=== PATIENT | female | born 1945 | race Caucasian/White ===

== ENCOUNTER 2020-04-14 16:58 | Inpatient (IN) | payer MEDICARE, SELFPAY ==
[2020-04-15 04:38] VITALS: BMI 25.7
--- NOTE | 2020-04-15 04:40 | ECG_ITS ---
Test Reason : VOMITTING Blood Pressure : / mmHG Vent. Rate : 138 BPM Atrial Rate : 120 BPM P-R Int : 000 ms QRS Dur : 116 ms QT Int : 340 ms P-R-T Axes : 000 -48 121 degrees QTc Int : 515 ms Atrial flutter with variable A-V block Left axis deviation T-wave inversion in Lateral leads Abnormal ECG When compared with ECG of 09-FEB-2020 16:55, Heart rate has increased Referred By: Dorina Diamond Electronically Signed By:ARLETTE ANTOINE
[2020-04-16] VITALS (9 sets, daily range): BP systolic 117–152; BP diastolic 57–98; PULSE 16–99; RESP 16–20; TEMP 36.3–37; O2SAT 98–100
[2020-04-16] MEDS: Heparin Sodium,Porcine 5,000 UNIT/ML VIAL 5000 UNIT SUBCUT ×2 (04:51→18:46)
[2020-04-16] MEDS: 0.9 % Sodium Chloride Flush 3 ML SYRINGE 2 ML IVFLUSH ×3 (08:14→23:56)
--- NOTE | 2020-04-16 10:27 | W.PM.DNNEP ---
Subjective Subjective This patient was seen during dialysis. Physical Exam Vital Signs and I&O and Narrative: Vital Signs and I&O: Vital Signs Temp 97.8 F 04/16/20 08:00 Pulse 75 04/16/20 04:00 Resp 16 04/16/20 08:00 BP 123/78 04/16/20 08:00 Pulse Ox 100 04/16/20 04:00 Intake & Output 04/15/20 04/16/20 04/16/20 18:59 06:59 18:59 Other: Number of Incont inent Voids 1 Number of Bowel Movements 1 Body Mass Index 25.7 Const: General: cooperative Orientation/consciousness: oriented to person Eyes: General: appearance normal, both eyes and all related structures Resp: Effort & Inspection: normal respiratory effort Cardio: Jugular venous distension: no JVD Rate: regular rate Heart sounds: no murmurs Skin: General skin exam: no rashes or lesions noted Neuro: General: oriented to person Motor exam (neuro): No Asterixis during motor activity present Assessment & Plan Assessment and plan (1) ESRD (end stage renal disease): Problem details: Non adherent to therapy Missed almost 4 weeks of out pt HD Status: Chronic Assessment and Plan: Uremia is resolving HD again tomorrow Keep on low K diet Can DC post dialysis tomorrow Will arrange for out patient HD Time Spent With Patient Time: Total time spent is greater than 50% in coordination of care (as documented) at patient's floor/unit and/or counseling patient:
[2020-04-16] MEDS: ondansetron HCL 4 MG/2 ML VIAL IVPUSH ×2 (10:30)
--- NOTE | 2020-04-16 12:21 | MHC.CM.PN ---
Per ROUNDS discussion, CM phoned Patient's Brother in [place]. Patient's Brother indicates that he is Patient's HCP, but he does not have a copy of the HCP. The only copy of the HCP is at Patient's home and Brother lives in [place]. Also, Patient has no PCP. CM spoke with RN, who indicates that Patient is alert and oriented. CM was attempting to complete a new HCP, but Patient was actively vomiting. CM will continue to attempt to secure a HCP with Patient.
[2020-04-16] MEDS: dilTIAZem HCL 60 MG TABLET PO ×3 (13:58→20:57)
[2020-04-16 15:04] LABS: Anion Gap 18 (12-20); Blood Urea Nitrogen 23 mg/dL (9-16); Calcium 7.7 mg/dL (8.4-10.2); Carbon Dioxide 21 mmol/L (22-29); Chloride 98 mmol/L (96-108); Creatinine Clr Calc Pharmacy 9.4; Estimated Glomerular Filt Rate 9; Glucose Random 101 mg/dL (60-115); Potassium 3.4 mmol/l (3.3-5.1); Sodium 134 mmol/L (135-145)
--- NOTE | 2020-04-16 16:45 | HO.PM.IMPN ---
Subjective Subjective Date of Service: 04/16/20 Interval History: patient brought in due to failure to thrive patient currently receiving hemodialysis complaining of nausea and vomiting denies abdominal pain no other acute issues overnight, no confusion, no tremor. Review of Systems Review of systems General no fever, no chills CVS no chest pain, no palpitation GI complaining of nausea, no abdominal pain, no diarrhea Physical Exam Vital Signs and I&O and Narrative: Vital Signs and I&O: Vital Signs Temp 97.5 F 04/16/20 16:00 Pulse 72 04/16/20 16:00 Resp 18 04/16/20 16:00 BP 139/57 L 04/16/20 16:00 Pulse Ox 99 04/16/20 16:00 Intake & Output 04/15/20 04/16/20 04/16/20 18:59 06:59 18:59 Intake Total 120 / 120 Balance 120 / 120 Intake: Intake, Oral [place] unt 120 / 120 Other: Meal Refused No Breakfast % Eate n 50% Number of Incont inent Voids 1 Number of Bowel Movements 1 Body Mass Index 25.7 On examination GENERAL: awake and alert,no acute distress. NECK: Supple. No jvd CARDIOVASCULAR: Irregularly regular. LUNGS: Clear, no respiratory distress. ABDOMEN: Soft. Nontender. Bowel sounds audible EXTREMITIES: No edema. NEUROLOGICAL: no focal deficit ,alert and oriented , no tremor. Objective Data Current Medications Generic Name Dose Route Start Last Admin Trade Name Freq PRN Reason Stop Dose Admin Diltiazem HCl 60 mg 04/16/20 13:00 04/16/20 13:58 Diltiazem Hcl 60 Mg Tablet PO 60 mg QID ANDIE Administration Protocol Heparin Sodium (Porcine) 5,000 unit 04/16/20 05:00 04/16/20 04:51 Heparin Sodium,Porcine 5,000 Unit/Ml Vial SUBCUT 5,000 unit Q12H ANDIE Administration Levalbuterol HCl 1.25 mg 04/16/20 12:01 Levalbuterol Hcl 1.25 Mg/3 Ml Vial.Neb INHALE Q3H PRN Shortness of Breath Ondansetron HCl 4 mg 04/16/20 00:00 04/16/20 10:30 Ondansetron Hcl 4 Mg/2 Ml Vial IVPUSH 4 mg Q8H PRN Administration Nausea and Vomiting Sodium Chloride 2 ml 04/16/20 00:00 04/16/20 08:14 0.9 % Sodium Chloride Flush 3 Ml Syringe IVFLUSH 2 ml QSHIFT ANDIE Administration Labs CBC & Chem 7: 04/14/20 13:47 04/16/20 14:05 Labs: Laboratory Results - last 24 hr 04/14/20 04/14/20 04/14/20 13:10 13:47 13:47 MCV MCH MCHC RDW Coeff of Cuong Plt Count MPV Immature Gran % (Auto) Neut % (Auto) Lymph % (Auto) Dickenson % (Auto) Eos % (Auto) Baso % (Auto) Abs Immat Gran (auto) Absolute Lymphs (auto) Absolute Monos (auto) Absolute Eos (auto) Absolute Basos (auto) Absolute Nucleated RBC Nucleated RBC % (auto) Absolute Neutrophils PT INR O2 Saturation ABG pH ABG pCO2 (Temp Corrct ABG pO2 (Temp Correct ABG HCO3 ABG Base Excess FiO2 Bicarbonate 8 L* D Anion Gap 32 H Estimated Creat Clear 1.9 Estim Creat Clear Calc Estimated GFR Est GFR (Non-Af Amer) 1 POC Glucose 92 Random Glucose 111 Fasting Glucose Lactic Acid Calcium 6.5 L D Magnesium 2.7 H Total Bilirubin 0.7 Direct Bilirubin 0.4 AST 11 ALT 10 Alkaline Phosphatase 85 Ammonia 54 Troponin I High Sens C-Reactive Protein 3.67 H Total Protein 7.6 Albumin 4.0 Lipase 94 H TSH 3rd Generation 2.74 Salicylates < 5.0 L Acetaminophen < 1 Ethyl Alcohol Acetone, Qual SMALL H 04/14/20 04/14/20 04/14/20 13:47 13:47 13:47 MCV MCH MCHC RDW Coeff of Cuong Plt Count MPV Immature Gran % (Auto) Neut % (Auto) Lymph % (Auto) Dickenson % (Auto) Eos % (Auto) Baso % (Auto) Abs Immat Gran (auto) Absolute Lymphs (auto) Absolute Monos (auto) Absolute Eos (auto) Absolute Basos (auto) Absolute Nucleated RBC Nucleated RBC % (auto) Absolute Neutrophils PT INR O2 Saturation ABG pH ABG pCO2 (Temp Corrct ABG pO2 (Temp Correct ABG HCO3 ABG Base Excess FiO2 Bicarbonate Anion Gap Estimated Creat Clear Estim Creat Clear Calc Estimated GFR Est GFR (Non-Af Amer) POC Glucose Random Glucose Fasting Glucose Lactic Acid 1.3 Calcium Magnesium Total Bilirubin Direct Bilirubin AST ALT Alkaline Phosphatase Ammonia Troponin I High Sens 239.6 H C-Reactive Protein Total Protein Albumin Lipase TSH 3rd Generation Salicylates Acetaminophen Ethyl Alcohol < 10 Acetone, Qual 04/14/20 04/14/20 04/14/20 13:47 13:49 15:55 MCV 89.3 MCH 29.3 MCHC 32.8 RDW Coeff of Cuong 15.8 Plt Count 205 MPV 10.0 Immature Gran % (Auto) 0.9 H Neut % (Auto) 81.6 H Lymph % (Auto) 10.8 L Dickenson % (Auto) 5.0 Eos % (Auto) 1.2 Baso % (Auto) 0.5 Abs Immat Gran (auto) 0.06 H Absolute Lymphs (auto) 0.7 L Absolute Monos (auto) 0.3 Absolute Eos (auto) 0.1 Absolute Basos (auto) 0.0 Absolute Nucleated RBC 0.000 Nucleated RBC % (auto) 0.0 Absolute Neutrophils 5.4 PT 14.0 H INR 1.2 H O2 Saturation 96.2 ABG pH 7.23 L ABG pCO2 (Temp Corrct 20 L* ABG pO2 (Temp Correct 92 ABG HCO3 8 L ABG Base Excess -17.5 FiO2 RA Bicarbonate Anion Gap Estimated Creat Clear Estim Creat Clear Calc Estimated GFR Est GFR (Non-Af Amer) POC Glucose Random Glucose Fasting Glucose Lactic Acid Calcium Magnesium Total Bilirubin Direct Bilirubin AST ALT Alkaline Phosphatase Ammonia Troponin I High Sens C-Reactive Protein Total Protein Albumin Lipase TSH 3rd Generation Salicylates Acetaminophen Ethyl Alcohol Acetone, Qual 04/15/20 04/16/20 05:43 14:05 MCV MCH MCHC RDW Coeff of Cuong Plt Count MPV Immature Gran % (Auto) Neut % (Auto) Lymph % (Auto) Dickenson % (Auto) Eos % (Auto) Baso % (Auto) Abs Immat Gran (auto) Absolute Lymphs (auto) Absolute Monos (auto) Absolute Eos (auto) Absolute Basos (auto) Absolute Nucleated RBC Nucleated RBC % (auto) Absolute Neutrophils PT INR O2 Saturation ABG pH ABG pCO2 (Temp Corrct ABG pO2 (Temp Correct ABG HCO3 ABG Base Excess FiO2 Bicarbonate 9 L* Anion Gap 30 H 18 Estimated Creat Clear 2.0 Estim Creat Clear Calc 9.4 Estimated GFR 9 Est GFR (Non-Af Amer) 1 POC Glucose Random Glucose 101 Fasting Glucose 150 H D Lactic Acid Calcium 6.6 L 7.7 L Magnesium Total Bilirubin 0.6 Direct Bilirubin AST 9 ALT 9 Alkaline Phosphatase 73 Ammonia Troponin I High Sens C-Reactive Protein Total Protein 6.7 Albumin 3.6 Lipase TSH 3rd Generation Salicylates Acetaminophen Ethyl Alcohol Acetone, Qual
[2020-04-17] VITALS (9 sets, daily range): BP systolic 103–141; BP diastolic 54–85; PULSE 74–103; RESP 16–76; TEMP 36.1–36.8; O2SAT 95–99
[2020-04-17] MEDS: Heparin Sodium,Porcine 5,000 UNIT/ML VIAL 5000 UNIT SUBCUT ×2 (06:02→16:26)
[2020-04-17] MEDS: dilTIAZem HCL 60 MG TABLET PO (07:35)
[2020-04-17] MEDS: 0.9 % Sodium Chloride Flush 3 ML SYRINGE 2 ML IVFLUSH ×3 (07:36→23:42)
--- NOTE | 2020-04-17 10:44 | W.PM.DNNEP ---
Subjective Subjective This patient was seen during dialysis. Interval history: patient brought in due to failure to thrive patient currently receiving hemodialysis complaining of nausea and vomiting denies abdominal pain no other acute issues overnight, no confusion, no tremor. Physical Exam Vital Signs and I&O and Narrative: Vital Signs and I&O: Vital Signs Temp 98 F 04/17/20 08:00 Pulse 74 04/17/20 08:00 Resp 18 04/17/20 08:00 BP 125/72 04/17/20 08:00 Pulse Ox 99 04/17/20 08:00 Intake & Output 04/16/20 04/17/20 04/17/20 18:59 06:59 18:59 Intake Total 120 / 410.25 290.25 / 410.25 Balance 120 / 410.25 290.25 / 410.25 Intake: Intake, Oral [place] unt 120 / 360 240 / 360 Intake, IV Amoun t 50.25 / 50.25 Promethazine H CL 6.25 mg In 0.9 50.25 / 50.25 % Sodium Chlor sneha 50 ml @ 201 mls/hr IV Q6H PRN Rx#: [id number] Other: Meal Refused No No Breakfast % Eate n 50% Body Mass Index 25.7 Const: General: cooperative Orientation/consciousness: oriented to person HENMT: Head: Yes normal to inspection Chest: Chest palpation & inspection: normal inspection of the chest Resp: Effort & Inspection: normal respiratory effort Cardio: Jugular venous distension: no JVD Rate: not tachycardic Heart sounds: no gallops GI: Inspection: Yes normal to inspection Auscultation: normal bowel sounds Skin: General skin exam: no rashes or lesions noted Neuro: General: oriented to person Motor exam (neuro): no asterixis Assessment & Plan Assessment and plan (1) ESRD (end stage renal disease): Problem details: Non adherent to therapy Missed almost 4 weeks of out pt HD Status: Chronic Assessment and Plan: Currently well dialyzed No s/s of uremia BP acceptable OK to DC home and will arrang eout pt HD
--- NOTE | 2020-04-17 12:13 | MHC.CM.PN ---
per multidis rounds pt to have pt eval and then str will be addressed
--- NOTE | 2020-04-17 13:59 | HO.PM.IMPN ---
Subjective Subjective Date of Service: 04/17/20 Review of Systems Date of Service: 04/17/20 Interval History: patient brought in due to failure to thrive patient feeling better this morning nausea vomiting resolved patient receiving hemodialysis 3rd day today creatinine significantly improved, patient continued to have normal mentation no fever chills no other acute issues noted. Review of systems General no fever, no chills CVS no chest pain, no palpitation GI complaining of nausea, no abdominal pain, no diarrhea Physical Exam Vital Signs and I&O and Narrative: Vital Signs and I&O: Vital Signs Temp 98 F 04/17/20 08:00 Pulse 74 04/17/20 08:00 Resp 18 04/17/20 08:00 BP 134/71 04/17/20 13:45 Pulse Ox 99 04/17/20 13:45 Intake & Output 04/16/20 04/17/20 04/17/20 18:59 06:59 18:59 Intake Total 120 / 410.25 290.25 / 410.25 Balance 120 / 410.25 290.25 / 410.25 Intake: Intake, Oral [place] unt 120 / 360 240 / 360 Intake, IV Amoun t 50.25 / 50.25 Promethazine H CL 6.25 mg In 0.9 50.25 / 50.25 % Sodium Chlor sneha 50 ml @ 201 mls/hr IV Q6H PRN Rx#: [id number] Other: Meal Refused No No Breakfast % Eate n 50% 100% Body Mass Index 25.7 On examination GENERAL: awake and alert,no acute distress. NECK: Supple. No jvd CARDIOVASCULAR: Irregularly regular. LUNGS: Clear, no respiratory distress. ABDOMEN: Soft. Nontender. Bowel sounds audible EXTREMITIES: No edema. NEUROLOGICAL: no focal deficit ,alert and oriented , no tremor. Objective Data Current Medications Generic Name Dose Route Start Last Admin Trade Name Freq PRN Reason Stop Dose Admin Diltiazem HCl 240 mg 04/18/20 09:00 Diltiazem Hcl Cd 240 Mg Cap.Er.Deg PO DAILY ANDIE Protocol Heparin Sodium (Porcine) 5,000 unit 04/16/20 05:00 04/17/20 06:02 Heparin Sodium,Porcine 5,000 Unit/Ml Vial SUBCUT 5,000 unit Q12H ANDIE Administration Promethazine HCl 6.25 mg/ 50.25 mls @ 201 mls/hr 04/16/20 17:55 04/16/20 19:07 Sodium Chloride IV Infused Q6H PRN Infusion Nausea and Vomiting Levalbuterol HCl 1.25 mg 04/16/20 12:01 Levalbuterol Hcl 1.25 Mg/3 Ml Vial.Neb INHALE Q3H PRN Shortness of Breath Sodium Chloride 2 ml 04/16/20 00:00 04/17/20 07:36 0.9 % Sodium Chloride Flush 3 Ml Syringe IVFLUSH 2 ml QSHIFT ANDIE Administration Labs CBC & Chem 7: 04/14/20 13:47 04/16/20 14:05 Labs: Laboratory Results - last 24 hr 04/16/20 14:05 Anion Gap 18 Estim Creat Clear Calc 9.4 Estimated GFR 9 Random Glucose 101 Calcium 7.7 L Assessment and Plan (1) Uremia: Status: Acute (2) Atrial fibrillation with RVR: Status: Acute (3) Hypertension: Status: Acute (4) ESRD (end stage renal disease): Problem details: Non adherent to therapy Missed almost 4 weeks of out pt HD Status: Chronic (5) Hyperkalemia: Status: Acute Assessment and Plan: 75-year-old female with history of end-stage renal disease, on hemodialysis Monday, , and Monday, who has elected not to go to dialysis because she does not feel like it, has not been there for a month or so, with generalized weakness and some early signs of uremia. Her BUN is 198 and creatinine is 24 significantly elevated. 1.End-stage renal disease with symptoms of uremia patient missed hemodialysis for greater than a month, Patient receiving hemodialysis 3rd day today creatinine has significantly improved, no further symptoms of nausea vomiting potassium normalized from 6.3 to 5.3 to 3.4 today. spoke with patient regarding dispo plan since she lives alone and frequently missing hemodialysis and medications recommended rehab patient is not willing to go told patient will rediscuss discharge plan after PT evaluation 2.atrial fibrillation/flutter with rapid RVR Patient has not taken her home medications metoprolol and Cardizem for several months, patient heart rate has improved DC Cardizem CD q.i.d. and changed to Cardizem CD 2 40 mg by mouth daily patient previously was on metoprolol will continue to hold for now,patient has not taken Coumadin for several months as well, case discussed with Nephrology regarding use of Eliquis he recommend to hold anticoagulation due to patient's noncompliance, will place on Eliquis of patient at increased to go to rehab. Patient has been informed about high risk of stroke due to noncompliance with medications. 3. Chronic obstructive pulmonary disease, no exacerbation. Smoking cessation discussed. No acute symptoms continue as needed updraft 4. Hypertension. Elevated Blood pressure on admission patient placed on Cardizem blood pressure improved, patient previously on Cardizem and metoprolol . 5. Hyperkalemia improved with hemodialysis . Deep venous thrombosis prophylaxis with heparin.
[2020-04-18 03:14] VITALS: BP 131/85; PULSE 85; RESP 20; TEMP 36; O2SAT 99
[2020-04-18] MEDS: Heparin Sodium,Porcine 5,000 UNIT/ML VIAL 5000 UNIT SUBCUT ×2 (04:42→16:55)
[2020-04-18 07:29] VITALS: BP 115/67; PULSE 94; RESP 18; TEMP 36.8; O2SAT 99
[2020-04-18] MEDS: dilTIAZem HCL CD 240 MG CAP.ER.DEG PO (09:29)
[2020-04-18] MEDS: 0.9 % Sodium Chloride Flush 3 ML SYRINGE 2 ML IVFLUSH ×2 (09:30→16:55)
--- NOTE | 2020-04-18 11:46 | PM.PNNEP ---
Subjective Subjective Interval history: seen and examined no comnplaints Physical Exam Vital Signs and I&O and Narrative: Vital Signs and I&O: Vital Signs Temp 98.2 F 04/18/20 07:29 Pulse 94 04/18/20 07:29 Resp 18 04/18/20 07:29 BP 115/67 04/18/20 07:29 Pulse Ox 99 04/18/20 07:29 Intake & Output 04/17/20 04/18/20 04/18/20 18:59 06:59 18:59 Intake Total 600 / 600 240 / 240 Output Total 0 / 0 Balance 0 / 600 600 / 600 240 / 240 Urine Output (Aver age ml/kg/hr) 0.00 0.00 0.00 Intake: Intake, Oral [place] unt 600 / 600 240 / 240 Output: Output, Urine Am ount 0 / 0 Other: Breakfast % Eate n 100% 100% Morning Snack % Eaten 100 Dinner % Eaten 75% Number of Unmeas ured Voids 1 Urine Bathroom Stool Incontinen Stool Color Brown Stool Consistenc y Soft Body Mass Index 25.7 Const: General: comfortable Neck: Neck: Yes supple Resp: Effort & Inspection: normal respiratory effort Auscultation: clear to auscultation bilaterally Cardio: Heart sounds: S1 normal heart sound present and S2 normal heart sound present GI: Palpation (GI): Soft to palpation and nontender Extrem: General: Yes no pedal edema Assessment & Plan Assessment and plan (1) ESRD (end stage renal disease): Status: Chronic (2) Hypertension: Status: Acute (3) Anemia: Status: Acute Assessment and Plan: HD per schedule renal diet epogen per protocol phosphate binders Time Spent With Patient Time: Total time spent is greater than 50% in coordination of care (as documented) at patient's floor/unit and/or counseling patient:
[2020-04-18 12:00] VITALS: BP 114/63; PULSE 74; RESP 16; TEMP 36.7; O2SAT 98
--- NOTE | 2020-04-18 12:06 | P.PNIM_ITS ---
Subjective Subjective Date of Service: 04/18/20 Interval History: admitted due to uremic symptoms ,lethargy , diagnosed to have significantly elevated BUN and creatinine since missed hemodialysis for several weeks. . This a.m. patient complaining of feeling weak, adamantly refusing rehab facility has been mostly in bed since admission. Review of Systems General no fever, no chills , complaining of tiredness and lethargy CVS no chest pain, no palpitation GI no complain of nausea, no abdominal pain, no diarrhea Physical Exam Vital Signs and I&O and Narrative: Vital Signs and I&O: Vital Signs Temp 98.2 F 04/18/20 07:29 Pulse 94 04/18/20 07:29 Resp 18 04/18/20 07:29 BP 115/67 04/18/20 07:29 Pulse Ox 99 04/18/20 07:29 Intake & Output 04/17/20 04/18/20 04/18/20 18:59 06:59 18:59 Intake Total 600 / 600 240 / 240 Output Total 0 / 0 Balance 0 / 600 600 / 600 240 / 240 Urine Output (Aver age ml/kg/hr) 0.00 0.00 0.00 Intake: Intake, Oral [place] unt 600 / 600 240 / 240 Output: Output, Urine Am ount 0 / 0 Other: Breakfast % Eate n 100% 100% Morning Snack % Eaten 100 Dinner % Eaten 75% Number of Unmeas ured Voids 1 Urine Bathroom Stool Incontinen Stool Color Brown Stool Consistenc y Soft Body Mass Index 25.7 GENERAL: awake and alert,no acute distress. NECK: Supple. No jvd CARDIOVASCULAR: Irregularly irregular. LUNGS: Clear, no respiratory distress. ABDOMEN: Soft. Nontender. Bowel sounds audible EXTREMITIES: No edema. NEUROLOGICAL: no focal deficit ,alert and oriented , no tremor. Objective Data Current Medications Generic Name Dose Route Start Last Admin Trade Name Freq PRN Reason Stop Dose Admin Diltiazem HCl 240 mg 04/18/20 09:00 04/18/20 09:29 Diltiazem Hcl Cd 240 Mg Cap.Er.Deg PO 240 mg DAILY ANDIE Administration Protocol Heparin Sodium (Porcine) 5,000 unit 04/16/20 05:00 04/18/20 04:42 Heparin Sodium,Porcine 5,000 Unit/Ml Vial SUBCUT 5,000 unit Q12H ANDIE Administration Promethazine HCl 6.25 mg/ 50.25 mls @ 201 mls/hr 04/16/20 17:55 04/16/20 19:0 7 Sodium Chloride IV Infused Q6H PRN Infusion Nausea and Vomiting Levalbuterol HCl 1.25 mg 04/16/20 12:01 Levalbuterol Hcl 1.25 Mg/3 Ml Vial.Neb INHALE Q3H PRN Shortness of Breath Sodium Chloride 2 ml 04/16/20 00:00 04/18/20 09:30 0.9 % Sodium Chloride Flush 3 Ml Syringe IVFLUSH 2 ml QSHIFT ANDIE Administration Labs CBC & Chem 7: 04/14/20 13:47 04/16/20 14:05 Assessment and Plan (1) ESRD (end stage renal disease): Status: Chronic (2) Hyperkalemia: Status: Acute (3) Anemia: Status: Acute (4) Hypertension: Status: Acute (5) Atrial fibrillation with RVR: Status: Acute (6) Uremia: Status: Acute Assessment and Plan: 1.End-stage renal disease with symptoms of uremia patient missed hemodialysis for greater than a month, status post hemodialysis x 3rd days creatinine has significantly improved, no further symptoms of nausea ,vomiting no confusion potassium normalized from 6.3 to 5.3 to 3.4 spoke with patient regarding dispo plan again today patient is refusing rehab, will follow PT recommending patient feels too weak to ambulate today recommend out of bed to chair 2.atrial fibrillation/flutter with rapid RVR Patient has not taken her home medications metoprolol and Cardizem for several months, patient heart rate has improved will continue Cardizem CD 2 40 mg by mouth daily patient previously was on metoprolol will continue to hold for now,patient has not taken Coumadin for several months as well, case discussed with Nephrology regarding use of Eliquis he recommend to hold anticoagulation due to patient's noncompliance, will place on Eliquis if patient agrees to go t o rehab. Patient has been informed about high risk of stroke due to noncompliance with medications. 3. Chronic obstructive pulmonary disease, no exacerbation. Smoking cessation discussed. No acute symptoms continue as needed updraft 4. Hypertension. Elevated Blood pressure on admission patient placed on Cardizem blood pressure improved, patient previously on Cardizem and metoprolol . 5. Hyperkalemia improved with hemodialysis . Deep venous thrombosis prophylaxis with heparin.
[2020-04-18 15:49] VITALS: BP 118/76; PULSE 89; RESP 18; TEMP 36.5; O2SAT 99
[2020-04-18 19:47] VITALS: BP 104/53; PULSE 87; RESP 20; TEMP 36.6; O2SAT 98
[2020-04-18 23:54] VITALS: BP 125/60; PULSE 75; RESP 18; TEMP 36.3; O2SAT 96
[2020-04-19] MEDS: 0.9 % Sodium Chloride Flush 3 ML SYRINGE 2 ML IVFLUSH ×4 (00:08→21:35)
[2020-04-19 03:24] VITALS: BP 115/71; PULSE 89; RESP 20; TEMP 36.8; O2SAT 98
[2020-04-19] MEDS: Heparin Sodium,Porcine 5,000 UNIT/ML VIAL 5000 UNIT SUBCUT ×2 (04:31→17:12)
[2020-04-19 07:31] VITALS: BP 133/71; PULSE 58; RESP 16; TEMP 36.6; O2SAT 98
[2020-04-19] MEDS: dilTIAZem HCL CD 240 MG CAP.ER.DEG PO (07:56)
[2020-04-19 08:00] VITALS: BP 107/55; PULSE 86; RESP 18; TEMP 36.6; O2SAT 97
--- NOTE | 2020-04-19 10:05 | PM.PNNEP ---
Subjective Subjective Interval history: seen and examined feels weak denies SOB, chest pain Physical Exam Vital Signs and I&O and Narrative: Vital Signs and I&O: Vital Signs Temp 97.8 F 04/19/20 08:00 Pulse 86 04/19/20 08:00 Resp 18 04/19/20 08:00 BP 107/55 L 04/19/20 08:00 Pulse Ox 97 04/19/20 08:00 Intake & Output 04/18/20 04/19/20 04/19/20 18:59 06:59 18:59 Intake Total 600 / 1030 430 / 1030 Output Total 0 / 0 Balance 600 / 1030 430 / 1030 Urine Output (Aver age ml/kg/hr) 0.00 0.00 Intake: Intake, Oral [place] unt 600 / 780 180 / 780 Intake, Intraper itoneal Amount 250 / 250 Output: Output, Urine Am ount 0 / 0 Other: Breakfast % Eate n 100% Morning Snack % Eaten 100 Lunch % Eaten 100% 100% Dinner % Eaten 100% Evening Snack % Eaten 100 Number of Bowel Movements 1 Stool Incontinen Bedside Commode Stool Color Brown Brown Stool Consistenc y Soft Semi Formed Body Mass Index 25.7 Const: General: comfortable HENMT: Head: Yes normocephalic and Yes atraumatic Neck: Neck: Yes supple Resp: Effort & Inspection: normal respiratory effort Auscultation: clear to auscultation bilaterally Cardio: Heart sounds: S1 normal heart sound present and S2 normal heart sound present GI: Inspection: Yes normal to inspection Palpation (GI): Soft to palpation and nontender Neuro: General: moves all extremities Extrem: General: Yes no pedal edema Assessment & Plan Assessment and plan (1) ESRD (end stage renal disease): Status: Chronic (2) Hypertension: Status: Acute (3) Anemia: Status: Acute Assessment and Plan: HD tomorrow per schedule renal diet epogen per protocol phosphate binders Time Spent With Patient Time: Total time spent is greater than 50% in coordination of care (as documented) at patient's floor/unit and/or counseling patient:
[2020-04-19 11:18] VITALS: BP 134/73; RESP 18; TEMP 36.6; O2SAT 97
--- NOTE | 2020-04-19 14:00 | P.PNIM_ITS ---
Subjective Subjective Interval History: admitted due to uremic symptoms ,lethargy , diagnosed to have significantly elevated BUN and creatinine since missed hemodialysis for several weeks. . patient awake alert this a.m. complaining of tiredness otherwise offers no other acute symptoms was out of bed to chair yesterday has been mostly in bed since admission adamantly refusing rehab facility has been mostly in bed since admission. Physical Exam Vital Signs and I&O and Narrative: Vital Signs and I&O: Vital Signs Temp 97.8 F 04/19/20 11:18 Pulse 86 04/19/20 08:00 Resp 18 04/19/20 11:18 BP 134/73 04/19/20 11:18 Pulse Ox 97 04/19/20 11:18 Intake & Output 04/18/20 04/19/20 04/19/20 18:59 06:59 18:59 Intake Total 600 / 1030 430 / 1030 Output Total 0 / 0 Balance 600 / 1030 430 / 1030 Urine Output (Aver age ml/kg/hr) 0.00 0.00 Intake: Intake, Oral [place] unt 600 / 780 180 / 780 Intake, Intraper itoneal Amount 250 / 250 Output: Output, Urine Am ount 0 / 0 Other: Breakfast % Eate n 100% 100% Morning Snack % Eaten 100 Lunch % Eaten 100% 100% Dinner % Eaten 100% Evening Snack % Eaten 100 Number of Bowel Movements 1 Stool Incontinen Bedside Commode Stool Color Brown Brown Stool Consistenc y Soft Semi Formed Body Mass Index 25.7 GENERAL: awake and alert,no acute distress. NECK: Supple. No jvd CARDIOVASCULAR: Irregularly irregular. LUNGS: Clear, no respiratory distress. ABDOMEN: Soft. Nontender. Bowel sounds audible EXTREMITIES: No edema. NEUROLOGICAL: no focal deficit ,alert and oriented , no tremor. Objective Data Current Medications Generic Name Dose Route Start Last Admin Trade Name Freq PRN Reason Stop Dose Admin Diltiazem HCl 240 mg 04/18/20 09:00 04/19/20 07:56 Diltiazem Hcl Cd 240 Mg Cap.Er.Deg PO 240 mg DAILY ANDIE Administration Protocol Heparin Sodium (Porcine) 5,000 unit 04/16/20 05:00 04/19/20 04:31 Heparin Sodium,Porcine 5,000 Unit/Ml Vial SUBCUT 5,000 unit Q12H ANDIE Administration Promethazine HCl 6.25 mg/ 50.25 mls @ 201 mls/hr 04/16/20 17:55 04/16/20 19:07 Sodium Chloride IV Infused Q6H PRN Infusion Nausea and Vomiting Levalbuterol HCl 1.25 mg 04/16/20 12:01 Levalbuterol Hcl 1.25 Mg/3 Ml Vial.Neb INHALE Q3H PRN Shortness of Breath Sodium Chloride 2 ml 04/16/20 00:00 04/19/20 07:57 0.9 % Sodium Chloride Flush 3 Ml Syringe IVFLUSH 2 ml QSHIFT [facility] Administration Labs CBC & Chem 7: 04/14/20 13:47 04/16/20 14:05 Assessment and Plan (1) ESRD (end stage renal disease): Status: Chronic (2) Hyperkalemia: Status: Acute (3) Anemia: Status: Acute (4) Hypertension: Status: Acute (5) Atrial fibrillation with RVR: Status: Acute (6) Uremia: Status: Acute Assessment and Plan: 1.End-stage renal disease with symptoms of uremia all symptoms of uremia resolved, in a patient complaining of generalized tiredness and fatigue has not ambulated since admission patient missed hemodialysis for greater than a month, status post hemodialysis x 3rd days creatinine has significantly improved, no further symptoms of nausea ,vomiting no confusion potassium normalized from 6.3 to 5.3 to 3.4 await PT evaluation to arrange for safe discharge plan 2.atrial fibrillation/flutter with rapid RVR Patient has not taken her home medications metoprolol and Cardizem for several months, patient heart rate has improved will continue Cardizem CD 240 mg by mouth daily patient previously was on metoprolol will continue to hold for now,patient has not taken Coumadin for several months as well, case discussed with Nephrology regarding use of Eliquis he recommend to hold anticoagulation due to patient's noncompliance, will place on Eliquis if patient agrees to go to rehab. Patient has been informed about high risk of stroke due to noncompliance with medications. 3. Chronic obstructive pulmonary disease, no exacerbation. Smoking cessation discussed. No acute symptoms continue as needed updraft 4. Hypertension. Elevated Blood pressure on admission patient placed on Cardizem blood pressure improved, patient previously on Cardizem and metoprolol . 5. Hyperkalemia improved with hemodialysis . Deep venous thrombosis prophylaxis with heparin.
[2020-04-19 16:00] VITALS: BP 118/61; PULSE 72; RESP 18; TEMP 36.4; O2SAT 100
[2020-04-19 19:53] VITALS: BP 106/48; PULSE 83; RESP 20; TEMP 36.4; O2SAT 97
[2020-04-20] VITALS (9 sets, daily range): BP systolic 107–153; BP diastolic 51–80; PULSE 50–112; RESP 16–20; TEMP 36.6–37.2; O2SAT 97–100
[2020-04-20] MEDS: Heparin Sodium,Porcine 5,000 UNIT/ML VIAL 5000 UNIT SUBCUT ×2 (04:12→18:29)
[2020-04-20] MEDS: dilTIAZem HCL CD 240 MG CAP.ER.DEG PO (08:26)
[2020-04-20] MEDS: 0.9 % Sodium Chloride Flush 3 ML SYRINGE 2 ML IVFLUSH (08:26)
--- NOTE | 2020-04-20 11:45 | PM.PNNEP ---
Subjective Subjective Interval history: Seen and examined admitted due to uremic symptoms ,lethargy , diagnosed to have significantly elevated BUN and creatinine since missed hemodialysis for several weeks. . patient awake alert this a.m. complaining of tiredness otherwise offers no other acute symptoms was out of bed to chair yesterday has been mostly in bed since admission adamantly refusing rehab facility has been mostly in bed since admission. Physical Exam Vital Signs and I&O and Narrative: Vital Signs and I&O: Vital Signs Temp 98.1 F 04/20/20 10:53 Pulse 84 04/20/20 11:31 Resp 16 04/20/20 10:53 BP 140/80 H 04/20/20 11:31 Pulse Ox 97 04/20/20 07:58 Intake & Output 04/19/20 04/20/20 04/20/20 18:59 06:59 18:59 Intake Total 540 / 900 360 / 900 Output Total 200 / 200 Balance 540 / 900 360 / 900 -200 / -200 Urine Output (Aver age ml/kg/hr) 0.24 Intake: Intake, Oral [place] unt 540 / 900 360 / 900 Output: Output, Urine Am ount 200 / 200 Other: Meal Refused No Breakfast % Eate n 100% 100% Lunch % Eaten 100% Dinner % Eaten 100% Number of Unmeas ured Voids 1 Number of Incont inent Bowel 1 Movements Stool inct Stool Color Brown Stool Consistenc y Mushy Body Mass Index 25.7 Const: General: cooperative and comfortable Orientation/consciousness: oriented to person HENMT: Head: Yes normal to inspection, Yes normocephalic and Yes atraumatic Eyes: General: appearance normal, both eyes and all related structures Neck: Neck: Yes supple Chest: Chest palpation & inspection: normal inspection of the chest Resp: Effort & Inspection: normal respiratory effort Auscultation: clear to auscultation bilaterally Cardio: Jugular venous distension: no JVD Rate: regular rate and not tachycardic Heart sounds: S1 normal heart sound present, S2 normal heart sound present, no gallops and no murmurs GI: Inspection: Yes normal to inspection Palpation (GI): Soft to palpation and nontender Auscultation: normal bowel sounds Skin: General skin exam: no rashes or lesions noted Neuro: General: oriented to person and moves all extremities Motor exam (neuro): no asterixis and No Asterixis during motor activity present Extrem: General: Yes no pedal edema Assessment & Plan Assessment and plan (1) ESRD (end stage renal disease): Status: Chronic (2) Uremia: Status: Acute (3) Atrial fibrillation with RVR: Status: Acute (4) Hyperkalemia: Status: Acute (5) Anemia: Status: Acute (6) Hypertension: Status: Acute Assessment and Plan: 1. ESRD: now back on HD ..mwf 2. Deconditioned 3. Anemia 4. HTN 5. Hemoaccess: LUE AVF 6. D/C planning: unsafe to go home but refusing SNF..ideally would be to go to [facility] and get HD at [facility] HD unit REC: HD today and cont mwf; may need dhara tamayo given her poor insight; avoid coumadin but conside eliquis for CVA prevention will follow with team Time Spent With Patient Time: Total time spent is greater than 50% in coordination of care (as documented) at patient's floor/unit and/or counseling patient:
--- NOTE | 2020-04-20 12:47 | MHC.CM.PN ---
per multidis rounds pt not safe to return home competencey eval ordered by
--- NOTE | 2020-04-20 13:10 | HO.PM.IMPN ---
Subjective Subjective Interval History: admitted due to uremic symptoms ,lethargy , diagnosed to have significantly elevated BUN and creatinine since missed hemodialysis for several weeks. . patient awake alert this a.m. complaining of tiredness otherwise offers no other acute symptoms ,was out of bed to chair yesterday has been mostly in bed since admission , patient continue to refuse rehab facility . review of systems. General no fever no chills patient complaining of tiredness. 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 Physical Exam Vital Signs and I&O and Narrative: Vital Signs and I&O: Vital Signs Temp 98.1 F 04/20/20 10:53 Pulse 84 04/20/20 11:31 Resp 16 04/20/20 10:53 BP 140/80 H 04/20/20 11:31 Pulse Ox 97 04/20/20 07:58 Intake & Output 04/19/20 04/20/20 04/20/20 18:59 06:59 18:59 Intake Total 540 / 900 360 / 900 Output Total 200 / 200 Balance 540 / 900 360 / 900 -200 / -200 Urine Output (Aver age ml/kg/hr) 0.24 Intake: Intake, Oral Porfirio unt 540 / 900 360 / 900 Output: Output, Urine Am ount 200 / 200 Other: Meal Refused No Breakfast % Eate n 100% 100% Lunch % Eaten 100% Dinner % Eaten 100% Number of Unmeas ured Voids 1 Number of Incont inent Bowel 1 Movements Stool inct Stool Color Brown Stool Consistenc y Mushy Body Mass Index 25.7 GENERAL: awake and alert,no acute distress. NECK: Supple. No jvd CARDIOVASCULAR: Irregularly irregular. LUNGS: Clear, no respiratory distress. ABDOMEN: Soft. Nontender. Bowel sounds audible EXTREMITIES: No edema. NEUROLOGICAL: no focal deficit ,alert and oriented , no tremor. Objective Data Current Medications Generic Name Dose Route Start Last Admin Trade Name Freq PRN Reason Stop Dose Admin Diltiazem HCl 240 mg 04/18/20 09:00 04/20/20 08:26 Diltiazem Hcl Cd 240 Mg Cap.Er.Deg PO 240 mg DAILY ANDIE Administration Protocol Heparin Sodium (Porcine) 5,000 unit 04/16/20 05:00 04/20/20 04:12 Heparin Sodium,Porcine 5,000 Unit/Ml Vial SUBCUT 5,000 unit Q12H ANDIE Administration Promethazine HCl 6.25 mg/ 50.25 mls @ 201 mls/hr 04/16/20 17:55 04/16/20 19:07 Sodium Chloride IV Infused Q6H PRN Infusion Nausea and Vomiting Levalbuterol HCl 1.25 mg 04/16/20 12:01 Levalbuterol Hcl 1.25 Mg/3 Ml Vial.Neb INHALE Q3H PRN Shortness of Breath Sodium Chloride 2 ml 04/16/20 00:00 04/20/20 08:26 0.9 % Sodium Chloride Flush 3 Ml Syringe IVFLUSH 2 ml QSHIFT ANDIE Administration Labs CBC & Chem 7: 04/14/20 13:47 04/16/20 14:05 Assessment and Plan (1) ESRD (end stage renal disease): Status: Chronic (2) Hyperkalemia: Status: Acute (3) Anemia: Status: Acute (4) Hypertension: Status: Acute (5) Atrial fibrillation with RVR: Status: Acute (6) Uremia: Status: Acute Assessment and Plan: 1.End-stage renal disease with symptoms of uremia all symptoms of uremia resolved, patient complaining of generalized tiredness and fatigue otherwise no specific symptoms, has not ambulated since admission patient missed hemodialysis for greater than a month, status post hemodialysis x 3 days creatinine has significantly improved, no further symptoms of nausea ,vomiting no confusion potassium normalized from 6.3 to 5.3 to 3.4 PT evaluation done patient refused to ambulate PT recommend short-term rehab but patient is refusing rehab, will obtain psych consultation for competency since it seems patient has poor insight to her medical issues nephrology recommend [facility], patient will need continued hemodialysis on Wednesdays and Monday. Will recheck CBC and BMP at a.m. 2.atrial fibrillation/flutter with rapid RVR Patient has not taken her home medications metoprolol and Cardizem for several months, patient heart rate has improved will continue Cardizem CD 240 mg by mouth daily patient previously was on metoprolol will continue to hold for now,patient has not taken Coumadin for several months as well, will use Eliquis for stroke prevention. 3. Chronic obstructive pulmonary disease, no exacerbation. Smoking cessation discussed. No acute symptoms continue as needed updraft 4. Hypertension. Elevated Blood pressure on admission patient placed on Cardizem blood pressure improved, patient previously on Cardizem and metoprolol . 5. Hyperkalemia improved with hemodialysis . Deep venous thrombosis prophylaxis with heparin.
[2020-04-20 13:33] LABS: Anion Gap 21 (12-20); Calcium 6.7 mg/dL (8.4-10.2); Carbon Dioxide 18 mmol/L (22-29); Chloride 98 mmol/L (96-108); Glucose Random 127 mg/dL (60-115); Potassium 5.3 mmol/l (3.3-5.1); Sodium 132 mmol/L (135-145)
[2020-04-20 13:56] LABS: Blood Urea Nitrogen 108 mg/dL (9-16); Creatinine Clr Calc Pharmacy 5.4; Estimated Glomerular Filt Rate 5
[2020-04-21 04:00] VITALS: BP 145/72; PULSE 90; RESP 19; TEMP 36.7; O2SAT 96
[2020-04-21] MEDS: Heparin Sodium,Porcine 5,000 UNIT/ML VIAL 5000 UNIT SUBCUT (04:54)
[2020-04-21 06:34] LABS: MANUAL DIFF FLAG NO
[2020-04-21 06:51] LABS: Basophils Percent Auto 0.3 % (0-2); Eosinophils Absolute Auto 0.1 X10*3/uL (0.0-0.4); Eosinophils Percent Auto 1.3 % (0-4); Hematocrit 26.7 % (37-47); Hemoglobin 8.7 g/dl (12.0-16.0); Imm Gran Abs Auto 0.04 X10*3/uL (0.00-0.03); Imm Gran Pct Auto 0.5 % (0.0-0.4); Lymphocytes Absolute Auto 1.1 X10*3/uL (1.2-4.9); Lymphocytes Percent Auto 15.1 % (20-40); Mean Corpuscular HGB Conc 32.6 g/dl (31.0-35.0); Mean Corpuscular Hemoglobin 29.3 pg (27.0-33.0); Mean Corpuscular Volume 89.9 fL (80-98); Mean Platelet Volume 10.4 fL (9.4-12.3); Monocytes Percent Auto 12.8 % (2-11); Neutrophils Absolute Auto 5.2 X10*3/uL (2.0-8.3); Platelet Count 197 X10*3/uL (160-400); Red Blood Count 2.97 X10*6/uL (4.20-5.50); Red Cell Distribution Width 15.2 % (11.0-16.0); White Blood Count 7.4 X10*3/uL (4.8-10.8)
[2020-04-21 07:45] LABS: Anion Gap 17 (12-20); Blood Urea Nitrogen 49 mg/dL (9-16); Calcium 7.9 mg/dL (8.4-10.2); Carbon Dioxide 21 mmol/L (22-29); Chloride 102 mmol/L (96-108); Creatinine Clr Calc Pharmacy 11.6; Estimated Glomerular Filt Rate 11; Glucose Random 93 mg/dL (60-115); Potassium 5.4 mmol/l (3.3-5.1); Sodium 135 mmol/L (135-145)
[2020-04-21 07:53] VITALS: BP 127/75; PULSE 97; RESP 18; TEMP 36.9; O2SAT 98
[2020-04-21] MEDS: 0.9 % Sodium Chloride Flush 3 ML SYRINGE 2 ML IVFLUSH (08:17)
[2020-04-21 08:18] VITALS: BP 127/75; PULSE 97
[2020-04-21] MEDS: dilTIAZem HCL CD 240 MG CAP.ER.DEG PO (08:18)
--- NOTE | 2020-04-21 10:05 | PM.PNNEP ---
Subjective Subjective Interval history: admitted due to uremic symptoms ,lethargy , diagnosed to have significantly elevated BUN and creatinine since missed hemodialysis for several weeks. review of systems. General no fever no chills patient complaining of tiredness. 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 Physical Exam Vital Signs and I&O and Narrative: Vital Signs and I&O: Vital Signs Temp 98.5 F 04/21/20 07:53 Pulse 97 04/21/20 08:18 Resp 18 04/21/20 07:53 BP 127/75 04/21/20 08:18 Pulse Ox 98 04/21/20 07:53 Intake & Output 04/20/20 04/21/20 04/21/20 18:59 06:59 18:59 Intake Total 360 / 360 Output Total 200 / 200 Balance -200 / 160 360 / 160 Urine Output (Aver age ml/kg/hr) 0.24 0.24 Intake: Intake, Oral [place] unt 360 / 360 Output: Output, Urine Am ount 200 / 200 Other: Meal Refused No Breakfast % Eate n 100% Evening Snack % Eaten 100 Number of Incont inent Voids 1 Number of Incont inent Bowel 1 Movements Stool Color [place] Stool Consistenc y Mushy Body Mass Index 25.7 GENERAL: awake and alert,no acute distress. NECK: Supple. No jvd CARDIOVASCULAR: Irregularly irregular. LUNGS: Clear, no respiratory distress. ABDOMEN: Soft. Nontender. Bowel sounds audible EXTREMITIES: No edema. NEUROLOGICAL: no focal deficit ,alert and oriented , no tremor. Const: General: cooperative and comfortable Orientation/consciousness: oriented to person HENMT: Head: Yes normal to inspection, Yes normocephalic and Yes atraumatic Eyes: General: appearance normal, both eyes and all related structures Neck: Neck: Yes supple Chest: Chest palpation & inspection: normal inspection of the chest Resp: Effort & Inspection: normal respiratory effort Auscultation: clear to auscultation bilaterally Cardio: Jugular venous distension: no JVD Rate: regular rate and not tachycardic Heart sounds: S1 normal heart sound present, S2 normal heart sound present, no gallops and no murmurs GI: Inspection: Yes normal to inspection Palpation (GI): Soft to palpation and nontender Auscultation: normal bowel sounds Skin: General skin exam: no rashes or lesions noted Neuro: General: oriented to person and moves all extremities Motor exam (neuro): no asterixis and No Asterixis during motor activity present Extrem: General: Yes no pedal edema Assessment & Plan Assessment and plan (1) ESRD (end stage renal disease): Status: Chronic (2) Atrial fibrillation with RVR: Status: Acute (3) Hyperkalemia: Status: Acute (4) Anemia: Status: Acute (5) Hypertension: Status: Acute Assessment and Plan: 1. ESRD: now back on HD ..mwf 2. Deconditioned 3. Anemia 4. HTN 5. Hemoaccess: LUE AVF 6. D/C planning: unsafe to go home but refusing SNF..ideally would be to go to [facility] and get HD at [facility] HD unit REC: HD cont mwf; look at xfger to [facility] ( HD onsite); may need pysch eval given her poor insight; avoid coumadin but conside eliquis for CVA prevention Time Spent With Patient Time: Total time spent is greater than 50% in coordination of care (as documented) at patient's floor/unit and/or counseling patient:
[2020-04-21 12:00] VITALS: BP 106/52; PULSE 80; RESP 20; TEMP 37.2; O2SAT 98
--- NOTE | 2020-04-21 12:09 | MHC.CM.PN ---
pt to [facility] today at 2:30 PT IS AGREEABLE amb booked brother /hcp notified of dc
[2020-04-21] MEDS: Apixaban 2.5 MG TABLET PO (12:54)
--- NOTE | 2020-04-21 13:06 | PM.PSYCN ---
History of Present Illness Chief Complaint: Uremia Reason for Consult: Capacity to make medical decision related to discharge plan Requesting physician: Juliana Naik Discussed with referring provider: Yes Sources of Information: patient interviewed and chart reviewed HPI Narrative: Pt is a 75 year old female with ESRD on HD currently medically admitted after missing HD for several weeks. Recommendation for discharge is SNF, but patient is refusing. Consult requested to evaluate for capacity related to this medical decision Pt seen X2, first time while she was in dialysis on 04/20 and she reported being tired and not willing to engage. Seen earlier this morning in room 446. Pt lying on her side, eyes closed and blanket pulled up to her neck. This video game script writer explained reason for interview, and pt reluctantly participating. Stating several times that she was tired. Pt expressed that she wishes to be discharged home and not to a SNF. She states that she lives alone and is unable to provide a plan for how she will care for herself (currently requiring physical assist for most ADLs). Able to articulate benefit to going to SNF, they want me to get my strength up , but unable to articulate any risks associated with going home without any supports. When asked about missing HD for several days, she stated, I wasn't feeling well , she denies having called anyone to assist her, denies calling provider to report not feeling well. Past Psychiatric History: Not fully explored, but does report history of depression Medical Evaluation Reviewed: Yes Personal & Social History: Lives alone Reported to this video game script writer that she has no supports in place other than home delivered meals Review of Systems Psychiatric: Denies anxiety, Reports depression, Denies hopelessness, Reports irritability and Denies suicidal ideation [facility] Medical History (Updated 04/20/20 @ 10:46 by Eri Langley RN) COPD (chronic obstructive pulmonary disease) End stage chronic kidney disease History of renal dialysis Hypertension Diagnostics Vital Signs (24Hr): Vital Signs - 24 hr 04/20/20 16:00 04/20/20 19:45 04/20/20 23:18 Temperature 98.0 F 97.9 F 98.9 F Pulse Rate 81 112 H 92 Respiratory Rate 16 20 16 Blood Pressure 153/73 H 141/59 H 114/51 L Pulse Oximetry 100 100 99 04/21/20 04:00 04/21/20 07:53 04/21/20 08:18 Temperature 98.0 F 98.5 F Pulse Rate 90 97 97 Respiratory Rate 19 18 Blood Pressure 145/72 H 127/75 127/75 Pulse Oximetry 96 98 04/21/20 12:00 Temperature 98.9 F Pulse Rate 80 Respiratory Rate 20 Blood Pressure 106/52 L Pulse Oximetry 98 Body Mass Index 25.7 Labs Results: 04/21/20 05:33 04/21/20 05:33 Labs: Laboratory Results - last 48 hr 04/20/20 04/21/20 04/21/20 12:36 05:33 05:33 WBC 7.4 RBC 2.97 L Hgb 8.7 L Hct 26.7 L MCV 89.9 MCH 29.3 MCHC 32.6 RDW 15.2 Plt Count 197 MPV 10.4 Immature Gran % (Auto) 0.5 H Neut % (Auto) 70.0 Lymph % (Auto) 15.1 L [place] % (Auto) 12.8 H Eos % (Auto) 1.3 Baso % (Auto) 0.3 Neut # (Auto) 5.2 Lymph # (Auto) 1.1 L [place] # (Auto) 1.0 Eos # (Auto) 0.1 Baso # (Auto) 0.0 Abs Immat Gran (auto) 0.04 H Absolute Nucleated RBC 0.000 Nucleated RBC % (auto) 0.0 Sodium 132 L 135 Potassium 5.3 H D 5.4 H Chloride 98 102 Carbon Dioxide 18 L 21 L Anion Gap 21 H 17 BUN 108 H* D 49 H D Creatinine 8.52 H* 4.04 H* Estim Creat Clear Calc 5.4 11.6 Estimated GFR 5 11 Random Glucose 127 H 93 Calcium 6.7 L 7.9 L Mental Status Exam Mental Status Exam Patient Appearance: Appropriate Patient Orientation: Person, Place, Time and Situation Level of Consciousness: Awake Patient Behavior: Guarded Mood Description: Withdrawn and Flat Affect Description: Withdrawn, Hostile and Flat Speech Pattern: Clear Thought Content: positive for Anton Depressive Symptoms: Sleeping More Than Usual, Feelings of Worthlessness and Increased Fatigue Judgement: Poor Medications Medications Current Medications Generic Name Dose Route Start Last Admin Trade Name Freq PRN Reason Stop Dose Admin Apixaban 2.5 mg 04/21/20 09:00 04/21/20 12:54 Apixaban 2.5 Mg Tablet PO 2.5 mg BID ANDIE Administration Diltiazem HCl 240 mg 04/18/20 09:00 04/21/20 08:18 Diltiazem Hcl Cd 240 Mg Cap.Er.Deg PO 240 mg DAILY ANDIE Administration Protocol Promethazine HCl 6.25 mg/ 50.25 mls @ 201 mls/hr 04/16/20 17:55 04/16/20 19:07 Sodium Chloride IV Infused Q6H PRN Infusion Nausea and Vomiting Levalbuterol HCl 1.25 mg 04/16/20 12:01 Levalbuterol Hcl 1.25 Mg/3 Ml Vial.Neb INHALE Q3H PRN Shortness of Breath Sodium Chloride 2 ml 04/16/20 00:00 04/21/20 08:17 0.9 % Sodium Chloride Flush 3 Ml Syringe IVFLUSH 2 ml QSHIFT ANDIE Administration Allergies Allergies Allergy/AdvReac Type Severity Reaction Status Date / Time aspirin [ASPIRIN] AdvReac Unknown UPSET Verified 04/17/20 16:12 STOMACH, gi upset codeine [CODEINE] AdvReac Unknown VOMITING Verified 04/17/20 16:12 Assessment & Plan Assessment & Plan (1) ESRD (end stage renal disease): Status: Chronic Code(s): N18.6 - End stage renal disease Recommendations: Based on chart review and patient interview, at this time, patient does not appear to have the capacity make decision to discharge home vs to SNF for continued care. She is unable to articulate risks associated with going home, unable to articulate risks associated with not receiving HD, unable to appreciate seriousness of medical issues that sanjuanita her in to the hospital. Patient is also unrealistic in terms of plan for discharge, stating that she will take care of herself when she has required assistance for most ADLs during her admission. HCP should be involved in making medical decisons today regarding discharge Pt appears to be experiencing depressive sx and may benefit from antidepressant and psychosocial interventions. Coordination with financial systems administrator regarding appropriate and safe medication should occur outpt as patient will be discharging shortly to SNF (2) Atrial fibrillation with RVR: Status: Acute Code(s): I48.91 - Unspecified atrial fibrillation Greater than 50% of the session was spent on counseling and/or coordination of care Patient educated on: therapeutic strategies and medical condition
--- NOTE | 2020-04-21 13:19 | PM.DS ---
DS: Providers Provider Date of admission: 04/14/20 16:58 Primary care physician: None Physician Consults: 04/15/20 04:43 Consult to Nephrology Routine Consulting Provider: Frantz Agustin Reason for consultation: Creatinine of 24 Has provider been notified: Yes 04/20/20 13:02 Consult to Psychiatry Routine Consulting Provider: Kayden Beltrán Reason for consultation: competency eval DS: Diagnosis Discharge Diagnosis (1) ESRD (end stage renal disease): Status: Chronic (2) Atrial fibrillation with RVR: Status: Acute (3) Hyperkalemia: Status: Acute (4) Anemia: Status: Acute (5) Hypertension: Status: Acute DS: Summary Hospital Course Hospital Course: 75-year-old female patient with end-stage renal disease on hemodialysis Monday and Monday was found by [employer] personal unable to get up so he called 911 and brought patient to the emergency room in the ER patient admitted that she has not gone for dialysis for several weeks and has not been taking her regular medication for several months patient in the ER was noted to have a potassium of 6.3 bicarb of 8 and creatinine of 24 patient was also noted to be in atrial fibrillation with rapid ventricular rate patient was previously on Coumadin noted to have a subtherapeutic INR. Uremia with history of end-stage renal disease. Patient was noted to have uremic symptoms with weakness nausea she required hemodialysis for 3 consecutive days her potassium and creatinine significantly improved currently patient is awake alert all symptoms of uremia has been resolved patient followed closely by Nephrology and they recommend hemodialysis 3 days a week Monday and Monday therefore patient is being discharged to [facility] hemodialysis and will be followed by Dr. Agustin. Atrial fibrillation with rapid ventricular rate. Patient has history of paroxysmal atrial fibrillation was noted to be in rapid AFib likely due to not taking home medications metoprolol and Cardizem patient was initially placed on IV Cardizem drip patient ventricular rate improved now patient placed on Cardizem CD 240 mg by mouth daily take her heart rate and blood pressure is stable patient has been also placed on low-dose Eliquis 2.[address] of Coumadin. COPD with no acute exacerbation noted. Continue as needed updraft anxiety depression patient was noted to be depressed therefore seen by Psychiatry and they recommend patient has no capacity to make decision therefore healthcare proxy invoked. Time Spent with Patient Time attestation: Total time spent providing and/or coordinating discharge services: Physical Exam Vital Signs and I&O and Narrative: Vital Signs and I&O: Vital Signs Temp 98.9 F 04/21/20 12:00 Pulse 80 04/21/20 12:00 Resp 20 04/21/20 12:00 BP 106/52 L 04/21/20 12:00 Pulse Ox 98 04/21/20 12:00 Intake & Output 04/20/20 04/21/20 04/21/20 18:59 06:59 18:59 Intake Total 360 / 360 120 / 120 Output Total 200 / 200 Balance -200 / 160 360 / 160 120 / 120 Urine Output (Aver age ml/kg/hr) 0.24 0.24 0.24 Intake: Intake, Oral Porfirio unt 360 / 360 120 / 120 Output: Output, Urine Am ount 200 / 200 Other: Meal Refused No Breakfast % Eate n 100% 50% Evening Snack % Eaten 100 Number of Incont inent Voids 1 Number of Incont inent Bowel 1 Movements Stool Color [place] Stool Consistenc y Mushy Body Mass Index 25.7 GENERAL: awake and alert,no acute distress. NECK: Supple. No jvd CARDIOVASCULAR: Irregularly irregular. LUNGS: Clear, no respiratory distress. ABDOMEN: Soft. Nontender. Bowel sounds audible EXTREMITIES: No edema. NEUROLOGICAL: no focal deficit ,alert and oriented , no tremor. DS: Data Data Completed and Pending Labs on day of discharge: Labs from last 24 hours 04/21/20 04/21/20 04/20/20 05:33 05:33 12:36 WBC 7.4 RBC 2.97 L Hgb 8.7 L Hct 26.7 L MCV 89.9 MCH 29.3 MCHC 32.6 RDW 15.2 Plt Count 197 MPV 10.4 Immature Gran % (Auto) 0.5 H Neut % (Auto) 70.0 Lymph % (Auto) 15.1 L Harris % (Auto) 12.8 H Eos % (Auto) 1.3 Baso % (Auto) 0.3 Neut # (Auto) 5.2 Lymph # (Auto) 1.1 L Harris # (Auto) 1.0 Eos # (Auto) 0.1 Baso # (Auto) 0.0 Abs Immat Gran (auto) 0.04 H Absolute Nucleated RBC 0.000 Nucleated RBC % (auto) 0.0 Sodium 135 132 L Potassium 5.4 H 5.3 H D Chloride 102 98 Carbon Dioxide 21 L 18 L Anion Gap 17 21 H BUN 49 H D 108 H* D Creatinine 4.04 H* 8.52 H* Estim Creat Clear Calc 11.6 5.4 Estimated GFR 11 5 Random Glucose 93 127 H Calcium 7.9 L 6.7 L Discharge Plan Discharge Patient Disposition: [facility] Referrals: Robert Read [Outside] Physician,None [Primary Care Provider] - Discharge Medications: New diltiazem HCl 240 mg Capsule,Extended Release 24hr 240 mg PO DAILY Qty: 30 RF: 0 levalbuterol HCl 1.25 mg/3 mL Solution For Nebulization 1.25 mg inhalation Q3H PRN (Reason: Shortness Of Breath) Qty: 3 RF: 0 Eliquis 2.5 mg Tablet 2.5 mg PO BID Qty: 60 RF: 0 Discharge Orders: Discharge Order (Routine); Ordered 04/21/20 Ordered By: Juliana Naik Diet: low fat, low cholesterol Activity on Discharge: As tolerated Discharge Date/Time: 04/21/20 15:50 Visit Report Forms: Patient Portal Discharge page Care Plan Goals: as per discharge plan Health Concerns: as per discharge plan Plan of Treatment: continue hemodialysis Monday and Monday to be arranged by [facility] Dr. Agustin
[2020-04-21 13:49] LABS: SARS COV2 PCR INHOUSE NEGATIVE (Negative)
[2020-04-21 15:31] LABS: HBsAGNum1 0.23 S/CO (0.00-0.99); Hepatitis B Surface Antigen Negative (Negative)
== END 2020-04-21 15:50 | disposition skilled nursing facility (03) | DRG 682 ==
PROVIDERS: Internal Medicine Nephrology; Admitting Provider Internal Medicine; Emergency Provider Emergency Medicine; Visit Provider Hospitalist
DX: I12.0 Hypertensive chronic kidney disease with stage 5 chronic kidney disease or end stage renal disease (principal); N18.6 End stage renal disease; Z99.2 Dependence on renal dialysis; J44.9 Chronic obstructive pulmonary disease, unspecified; I48.0 Paroxysmal atrial fibrillation; F41.9 Anxiety disorder, unspecified; F32.9 Major depressive disorder, single episode, unspecified; Z91.15 Patient's noncompliance with renal dialysis; E87.5 Hyperkalemia; F17.210 Nicotine dependence, cigarettes, uncomplicated; Z20.828 Contact with and (suspected) exposure to other viral communicable diseases; Z71.6 Tobacco abuse counseling; Z88.5 Allergy status to narcotic agent; Z88.6 Allergy status to analgesic agent; Z79.899 Other long term (current) drug therapy
CPT/HCPCS: 36415; 36600; 70450; 71045; 72125; 80048; 80051; 80053; 80076; 80320; 82009; 82140; 82310; 82550; 82565; 82803; 82947; 83605; 83690; 83735; 84443; 84484; 84520; 85025; 85610; 86140; 87040; 87340; 87635; 90999; 93005; 93010; 94640; 96365; 96366; 96375; 96376; 97161; 99285; G0480; J0610; J2150; J2405

== ENCOUNTER 2020-04-22 07:16 | Outpatient (REF) | payer SELFPAY ==
[2020-04-22 07:35] LABS: Hematocrit 25.3 % (37-47); Hemoglobin 8.2 g/dl (12.0-16.0); Mean Corpuscular HGB Conc 32.4 g/dl (31.0-35.0); Mean Corpuscular Hemoglobin 29.4 pg (27.0-33.0); Mean Corpuscular Volume 90.7 fL (80-98); Mean Platelet Volume 10.1 fL (9.4-12.3); Platelet Count 201 X10*3/uL (160-400); Red Blood Count 2.79 X10*6/uL (4.20-5.50); Red Cell Distribution Width 15.7 % (11.0-16.0); White Blood Count 7.1 X10*3/uL (4.8-10.8)
[2020-04-22 08:52] LABS: Blood Urea Nitrogen 86 mg/dL (9-16); Estimated Glomerular Filt Rate 6
[2020-04-22 08:53] LABS: Alanine Aminotransferase 26 U/L (0-31); Albumin Level 3.4 g/dL (3.5-5.0); Alkaline Phosphatase 95 U/L (39-117); Aspartate Amino Transferase 21 U/L (5-31); Bilirubin Total 0.6 mg/dL (0.0-1.0); Calcium 7.1 mg/dL (8.4-10.2); Glucose Random 112 mg/dL (60-115); Total Protein 6.5 g/dL (6.5-8.0)
[2020-04-22 09:21] LABS: Potassium 5.7 mmol/l (3.3-5.1)
[2020-04-22 09:23] LABS: Sodium 136 mmol/L (135-145)
[2020-04-22 09:26] LABS: Anion Gap 21 (12-20); Carbon Dioxide 20 mmol/L (22-29); Chloride 101 mmol/L (96-108)
== END 2020-04-22 07:17 | disposition home or self-care (01) ==
LOC: HO.MMNH1L 07:16
PROVIDERS: Visit Provider Family Medicine
DX: N18.6 End stage renal disease (principal)
CPT/HCPCS: 36415; 80053; 85027

== ENCOUNTER 2020-05-01 19:27 | Outpatient (REF) | payer MEDICARE, SELFPAY | END 2020-05-01 19:28 | disposition home or self-care (01) | LOC: HO.LNP 19:27 | PROVIDERS: Visit Provider Family Medicine | DX: Z20.828 Contact with and (suspected) exposure to other viral communicable diseases (principal) | CPT/HCPCS: 87635 ==